=== PATIENT | female | born 1955 | race Caucasian/White ===

== ENCOUNTER → 2017-03-21 | Outpatient (CLI) | payer BC ==
--- NOTE | 2017-03-21 10:35 | RAD ---
HISTORY: Chronic right humeral pain Study: Right humerus two view Comparison: None Findings: There is no evidence for fracture, lytic, or blastic lesion. No abnormal periosteal reaction or soft tissue abnormality is identified. IMPRESSION: No significant abnormality identified Reported By:
== END ==
LOC: RAD 10:12
PROVIDERS: ATTEND Specialist
DX: M19.011 Primary osteoarthritis, right shoulder (principal)
CPT/HCPCS: 73060

== ENCOUNTER → 2017-11-22 | Outpatient (CLI) | payer BC ==
--- NOTE | 2017-11-22 14:10 | RAD ---
HISTORY: Right shoulder pain Study: Three views right shoulder Comparison: None Findings: There is no acute fracture or dislocation. No significant DJD is appreciated. There are no destructiv e osseous lesions. The visualized portions of the right lung are clear. IMPRESSION: Negative right shoulder examination. Reported By:
== END ==
LOC: RAD 07:32
PROVIDERS: ATTEND Specialist
DX: M19.011 Primary osteoarthritis, right shoulder (principal)
CPT/HCPCS: 73030; A4222